=== PATIENT | male | born 1930 | race Caucasian/White ===

== ENCOUNTER → 2018-08-15 | Outpatient (CLI) | payer OTHER ==
[~2018-08-15] MED LIST: ACID CONTROL20 MG PO; ADULT LOW DOSE81 MG PO; ALPRAZOLAM 0.0.25 M1 PO; ASPIRIN325 PO; ATENOLOL 25 MG25 M1 PO; AUGMENTIN 875875 M1 PO; AZMACORT20 G1 NS; AZOR 10-40 MG1 EACH PO; BACTRIM PO; BENADRYL25 MG PO; BENICAR HCT 401 EAC1 PO; BENICAR20 MG PO; BENICAR40 MG PO; BENZONATATE100 MG PO; BYSTOLIC 5 MG5 M1 PO; CALCIUM 600 WI1 EAC5; CALCIUM PO; CENTRUM SILVER1 EAC1; CHLORTHALIDONE25 MG PO; CLARITIN10 MG PO; DECLOMYCIN150 MG PO; DYAZIDE 37.5-21 EACH PO; FAMOTIDINE20 MG PO; GLUCOSAMINE &1 EAC1 PO; GLUCOSAMINE &1 EACH; GLUCOSAMINE CH1 EAC7 OR; GUAIFENESIN DM1 EACH PO; HYDROXYZINE HCL25 M1 OR; HYDROXYZINE HCL25 M1 PO; HYDROXYZINE HCL25 M2 PO; IBUPROFEN 600600 M1 PO; KLOR-CON 10 ER10 MEQ PO; MULTIVITAMINS PO; MYRBETRIQ25 MG PO; NASACORT AQ NASAL; NASACORT AQ NS; NORCO 5-325 TA1 EACH PO; PCCA GELATIN BAS1 GM OR; PRADAXA150 MG PO; PRESERVISION L1 EACH PO; SIMVASTATIN20 MG PO; TRIAMCINOLONE16.5 GM NASAL; VASOTEC PO; VITAMINC500 PO; ZOSYN 3.3753.375 GM IV; ZYRTEC 10 MG TA10 M1 PO; ZYRTEC 10 MG TA10 MG PO; ZYRTEC10 M2
--- NOTE | 2018-08-15 12:54 | 2DMMODE ---
[facility] [employer] [place] [address] 2 D/M-MODE ECHOCARDIOGRAM Name: CHUCK OSMAN Room #: [facility]#: [id number] ������������� Admission: 08/15/18 ������������� Attend Phys: Rian Sow, Discharge: ��� ������������� ��� Date of : 34 Date of Service: 08/15/18 1253 �� Report #: [id number] �������� ��������������������������������������������[id number] THIS REPORT FOR: //name// APPROVED REPORT Study performed: 08/15/2018 10:12:48 EXAM: Comprehensive 2D, Doppler, and color-flow Echocardiogram Patient Location: Out-Patient Status: routine BSA: 1.88 HR: 68 bpm BP: 114/70 mmHg Rhythm: Atrial Flutter Other Information Study Quality: Good Indications HTN, aortic stenosis. 2D Dimensions RVDd: 36.48 mm IVSd: 13.99 (7-11mm) LVOT Diam: 20.64 (18-24mm) LVDd: 41.40 mm PWd: 14.68 (7-11mm) LVDs: 27.31 (25-40mm) Aortic Root: 34.33 mm Volumes Left Atrial Volume (Systole) Single Plane 4CH: 83.27 mL Single Plane 2CH: 100.96 mL LA ESV Index: 51.00 mL/m2 Aortic Valve AoV Peak Alfredo.: 2.69 m/s AO Peak Gr.: 28.95 mmHg LVOT Max P.72 mmHg AO Mean Gr.: 17.29 mmHg AO V2 Mean: 2.00 m/s LVOT Max V: 0.82 m/s AO V2 VTI: 62.23 cm MARY Vmax: 1.02 cm2 Mitral Valve MV Decel. Time: 180.73 ms [facility] [address] [place] [address] 2 D/M-MODE ECHOCARDIOGRAM Name: CHUCK OSMAN Room #: [facility]#: [id number] ������������� Admission: 08/15/18 ������������� Attend Phys: Rian Sow, Discharge: ��� ������������� ��� Date of : 34 Date of Service: 08/15/18 1253 �� Report #: [id number] �������� ��������������������������������������������[id number] MV E Max Alfredo.: 1.13 m/s Pulmonary Valve PV Peak Alfredo.: 0.90 m/s PV Peak Gr.: 3.22 mmHg Tricuspid Valve TR Peak Alfredo.: 3.09 m/s RAP Estimate: 15.00 mmHg TR Peak Gr.: 38.20 mmHg PA Pressure: 53.00 mmHg Left Ventricle The left ventricle is normal size. There is normal LV segmental wall motion. Moderate concentric left ventricular hypertrophy. Left ventricular systolic function is normal. LVEF is 55-60%. This study is not technically sufficient to allow evaluation of the LV diastolic function. Right Ventricle The right ventricle is normal size. The right ventricular systolic function is normal. Atria Left atrium is mildly dilated. Right atrium is severely dilated. Aortic Valve Aortic valve is moderately calcified. No aortic regurgitation is present. Moderate aortic stenosis. Calculated valve area is 1.0cm2 with a peak gradient of 30mmHg and a mean of 17mmHg. Mitral Valve Mild mitral annular calcification. Mild to moderate mitral regurgitation. Tricuspid Valve The tricuspid valve is normal in structure. Mild to moderate tricuspid regurgitation. Estimated PAP is 50-55mmHg. Pulmonic Valve The pulmonary valve is normal in structure. Moderate pulmonic regurgitation. Great Vessels The aortic root is normal in size. Ascending aorta is not well visualized. IVC is dilated and collapses <50% with inspiration. [facility] [address] [place] [address] 2 D/M-MODE ECHOCARDIOGRAM Name: CHUCK OSMAN Zaira Room #: [facility]#: [id number] ������������� Admission: 08/15/18 ������������� Attend Phys: Rian Sow, Discharge: ��� ������������� ��� Date of : 34 Date of Service: 08/15/18 1253 �� Report #: [id number] �������� ��������������������������������������������[id number] Pericardium There is no pericardial effusion. <Conclusion> Left ventricular systolic function is normal. There is normal LV segmental wall motion. LVEF 55-60%. Both atria are dilated. Aortic valve is moderately calcified. No aortic insufficiency Moderate aortic stenosis. Calculated valve area is 1.0cm2 with a peak gradient of 30mmHg and a mean of 17mmHg. Mild mitral annular calcification. Mild to moderate mitral regurgitation. Mild to moderate tricuspid regurgitation. Estimated pulmonary artery pressure of 50-55mmHg. There is no pericardial effusion. ��������������������������������������������� <ELECTRONICALLY SIGNED> ���������������������������������������� By: Joel Kenney MD, FACC ��������������������������������������������� 08/15/18 1253 1253 1253 Joel Kenney MD, FACC /INF
== END ==
LOC: CV 07:59
DX: I08.8 Other rheumatic multiple valve diseases (principal); I10 Essential (primary) hypertension

== ENCOUNTER 2018-11-06 09:50 | Emergency (ER) | payer OTHER ==
[~2018-11-06] VITALS: Ht 177.8 cm; Wt 75.3 kg
[2018-11-06 10:12] LABS: ABSOLUTE NEUTROPHILS 6.2 thou/uL (1.4-8.2); BASOPHILS 0.7 % (0.0-2.0); EOSINOPHILS 2.6 % (0.0-3.0); HEMATOCRIT 40.1 % (42.0-52.0); HEMOGLOBIN 13.9 gm/dL (14.0-18.0); LYMPHOCYTES 9.9 % (24.0-44.0); MCH 32.8 pg (26.0-34.0); MCHC 34.6 g/dL (28.0-37.0); MCV 94.7 fL (80.0-100.0); MONOCYTES 8.4 % (1.0-8.0); PLATELET COUNT 171 thou/uL (150-400); POLYS 78.4 % (36.0-66.0); RBC 4.24 mil/uL (4.50-6.00); RDW 14.2 % (10.5-14.5)
[2018-11-06 11:06] LABS: ANION GAP 11 mmol/L (7-16); APTT 42.2 Seconds (24.5-32.8); BUN 19 mg/dL (7-18); CALCIUM 10.1 mg/dL (8.5-10.1); CHLORIDE 95 mmol/L (98-107); CO2 26 mmol/L (21-32); CREATININE 1.2 mg/dL (0.7-1.3); GLUCOSE 103 mg/dL (74-106); INR 1.3; POTASSIUM 4.1 mmol/L (3.5-5.1); PROTIME 13.6 Seconds (9.3-11.4); SODIUM 132 mmol/L (136-145)
[2018-11-06 11:16] LABS: ALBUMIN 3.6 g/dL (3.4-5.0); SGOT 32 U/L (15-37); SGPT 22 U/L (30-65); TOTAL BILIRUBIN 1.2 mg/dL (<0.1-1.0); TOTAL PROTEIN 7.3 g/dL (6.4-8.2); TROPONIN-I <0.06 ng/mL (<0.06)
[2018-11-06 11:41] VITALS: BP 113/56
--- NOTE | 2018-11-06 16:24 | EKG ---
[place] [address] [email or web address] [email or web address] [address] ELECTROCARDIOGRAM REPORT Name: CHUCK OSMAN Room #: [facility]P [facility]#: [id number] ������������������ Admission: 11/06/18 ������������������ Attend Phys: Discharge: 11/06/18 ������������������ Date of : 34 Report #: [id number] ����������������������������������������������������������������� [id number] THIS REPORT FOR: //name// [facility] ED Test Date: 2018-11-06 Test Time: 10:35:57 Pat Name: CHUCK OSMAN Department: Room: Gender: M [employer] Equipment [employer]: SYDNEY : 1930 Requested By: Minh Rodriguez Order Number: [id number] MD: Joel Kenney Measurements Intervals [place] Rate: 79 P: MA: QRS: -63 QRSD: 112 T: 89 QT: 427 QTc: 490 Interpretive Statements Atrial fibrillation Abnormal R-wave progression, late transition Possible inferior infarct, old Compared to ECG 05/17/2011 12:24:04 Atrial fibrillation has replaced sinus rhythm axis has shifted leftward inferior Q waves are now present Electronically Signed On 11-06-2018 16:23:58 CDT by Joel Kenney [email or web address] ��������������������������������������������� <ELECTRONICALLY SIGNED> ���������������������������������������� By: Joel Kenney MD, [facility] ��������������������������������������������� 11/06/18 1623 1035 1035 Joel Kenney MD, [facility] /EPI
== END 2018-11-06 12:00 | disposition home or self-care (01) ==
LOC: ER 09:50
PROVIDERS: Emergency Medicine
DX: M25.511 Pain in right shoulder (principal); M25.521 Pain in right elbow; I10 Essential (primary) hypertension; M48.00 Spinal stenosis, site unspecified; Z88.1 Allergy status to other antibiotic agents; Z88.8 Allergy status to other drugs, medicaments and biological substances; Z88.0 Allergy status to penicillin; Z91.018 Allergy to other foods; Z90.79 Acquired absence of other genital organ(s)

== ENCOUNTER → 2019-09-05 | Outpatient (CLI) | payer OTHER | LOC: SJCVCIMAG 07:10 | DX: I08.3 Combined rheumatic disorders of mitral, aortic and tricuspid valves (principal); I48.92 Unspecified atrial flutter; I44.30 Unspecified atrioventricular block; R94.31 Abnormal electrocardiogram [ECG] [EKG]; I11.9 Hypertensive heart disease without heart failure; E78.00 Pure hypercholesterolemia, unspecified; I48.91 Unspecified atrial fibrillation; R60.9 Edema, unspecified; E78.5 Hyperlipidemia, unspecified; Z82.49 Family history of ischemic heart disease and other diseases of the circulatory system; Z79.899 Other long term (current) drug therapy ==